=== PATIENT | female | born 2000 ===

== ENCOUNTER 2025-02-18 13:59 | Outpatient (AMB) | payer BC, SELFPAY ==
[2025-02-18 14:22] VITALS: BP 120/73; PULSE 74; RESP 18; TEMP 36.4; O2SAT 99; BMI 22.3
--- NOTE | 2025-02-18 14:22 | OBCLNT_ITS ---
Vital Signs 02/18/25 14:22 Height 1.55 m Height Method Stated Weight 53.637 kg Weight Measurement Method Standing Scale BMI 22.3 BP 120/73 Blood Pressure Source Automatic Cuff Blood Pressure Location Right Upper Arm Position Sitting Respiration 18 Pulse 74 Pulse Source Monitor Temp 97.6 F Temp Source Temporal Artery Scan Pulse Oximetry (%) 99 Oxygen Delivery Method Room Air Allergies/Home Meds Allergies & Medications Allergies NKA* Allergy (Uncoded 02/18/25 14:23) Medication Reconciliation No Known Home Medications 02/18/25 [History Confirmed 02/18/25] Intake Visit Data Collection New Patient or Established: New Patient (never been to [facility]) Reason for Visit:: OBI TRANSFER Seen by Clinical Staff ONLY (RN/MA): No Compliance Administrator Required: No Do You Feel Safe at Home: Yes Authorities Contacted: N/A PCP or OBGYN visit in last 3 months: No Date of Last PCP or OBGYN visit: 10/14/24 Hx Now: Yes Are you currently on any form of Control: No Pain Present Currently: No Pain Scale Used: Coe-Richardson/Numerical Pain scale:: 0 Smoking Status Smoking Status: Never smoker Immunizations Flu Vaccine in the Last 12 Months: No Flu Vaccine Exclusion Criteria: No Exclusion Criteria Questionnaires Covid-19 Vaccine Questionnaire Has patient been vacinated for Covid-19 Have you been vacinated for Covid-19: No PHQ-9 PHQ-2 Over the last 2 weeks, how often have you been bothered by any of the following problems? 1. Little interest or pleasure in doing things: not at all 2. Feeling down, depressed, or hopeless: not at all Total score: 0 PHQ-9 3. Trouble falling or staying asleep, or sleeping too much: Not at all 4. Feeling tired or having little energy: Not at all 5. Poor appetite or overeating: Not at all 6. Feeling bad about yourself - or that you are a failure or have let yourself or your family down: Not at all 7. Trouble concentrating on things, such as reading the newspaper or watching television: Not at all 8. Moving or speaking so slowly that other people could have noticed? - Or the opposite - being so fidgety or restless that you have been moving around a lot more than usual: not at all 9. Thoughts that you would be better off or of hurting yourself in some way: Not at all Total score: 0 If you checked off any problems, how difficult have these problems made it for you to do your work, take care of things at home, or get along with other people?: not difficult at all Source: Developed by Drs. Chito Sanderson, Mounika Loo, Marvin Gonzalez and colleagues, with an educational dheeraj from [employer]. Depression screen completed yes Social History Living Situation History Marital Status: Life Partner Lives With: Family Housing: House Tobacco History Smoking Status: Never smoker Second Hand Smoke Exposure: No Alcohol History Alcohol Intake: Never Domestic Abuse History Do You Feel Safe at Home: Yes History of Present Illness HPI Narrative 24-year-old 1 para 0 for OBI. Patient was a transfer of care from [facility] in [facility]. Her last period October 17, 2024. Patient reports her periods are every month in the last 5 days. This gives EDC of July 24, 2025. Patient also had a 6-week ultrasound June 29, 2024. At [facility] she was 6 weeks then and that confirmed dates. Denies social habits. Denies surgery. Patient has history of asthma with exercise. She uses inhaler if she has breathing difficulties for rescue. Denies leaking or bleeding. And no cramps. Patient is O+, antibody screen negative, RPR nonreactive, rubella nonimmune, hepatitis B negative, hep C negative, HIV negative, GC and Chlamydia were negative. And patient declined NIPT and carrier screens. She also does not want to do AFP OB Initial Visit OB Flowsheet OB Flowsheet Initial Weight: Not Recorded Date -?-?-?-?-?-?-?-?-?-?-?-?- EGA Weight BP Alb Glu CTX Pres Fundal ht FHR Mov Dilation Station Effacement Hx Notes Visit Note 02/18/25 -?-?-?-?-?-?-?-?-?-?-?-?- 17w 5d 53.637 kg 120/73 absent unknown 18 145 active 24-year-old 1 para 0 for OB today. Patient is a transfer from [facility] with records. Her last period was October 17, 2024. And this gives EDC of July 24, 2025. Patient had a 6-week ultrasound November to confirm it I reviewed all her labs is normal. She denies cramping, bleeding, leaking and reports light movement Declined NIPT and carrier screen. Declined AFP. Patient agrees to scheduling anatomy scan at [facility]. Discussed labor precautions. Discussed diet and weight gain. Increase fluids. Return in 4 weeks OB check Menstrual History Menstrual reliability: definite Flow: normal Menstrual regularity: regular Monthly: Yes Age at menarche: 12 On control pills at conception: No OB History : 1 Para: 0 # of Living Children: 1 Infection History & Risk Evaluation History of STDs: gonorrhea (2019) Genetic Screening & History Genetic Screening/Teratology Counseling - Includes patient, baby's father, or anyone in either family with: 1. Patient's age 35 years or older as of estimated date of delivery: No 2. Thalassemia (Tongan, Honduran, Mediterranean, or Background); MCV less than 80: No 3. Neural Tube Defect (Meningomyelocele, Spina Bifida, or Anencephaly): No 4. Congenital Heart Defect: No 5. Down Syndrome: No 6. Zi-Sachs (Ashkenazi Sabianist, Cajun, B[place]an [place]): No 7. Jyoti Disease (Ashkenazi Sabianist): No 8. Familial Dysautonomia (Ashkenazi Sabianist): No 9. Sickle Cell Disease or Trait (): No 10. Hemophilia or other blood disorders: No 11. Muscular Dystrophy: No 12. Cystic Fibrosis: No 13. Daryl's Chorea: No 14. Mental Retardation/Autism: No 15. Other inherited genetic or chromosomal disorder: No 16. Maternal Metabolic Disorder (EG,TYPE 1 Diabetes, PKU): No 17. Patient or baby's father had a child with defects not listed above: No 18. Recurrent loss or a stillbirth: No 19. Medications (including supplements, vitamins, herbs or otc drugs)/ illicit/recreational drugs/alcohol since last menstrual period: No 20. Any other: No Infection History Other (see comments) Source: [employer] Review of Systems Review of Systems Systems Reviewed: All systems reviewed, normal except as documented Exam General Limitations: no limitations General Appearance: alert, in no apparent distress, comfortable, cooperative, healthy appearing, well developed and well groomed Head Head exam: atraumatic, normocephalic and normal inspection ENT ENT exam: Present normal exam, normal oropharynx and mucous membranes moist Neck Neck exam: Present normal inspection, full ROM and trachea midline Chest Chest inspection: Present normal inspection and symmetric chest wall rise Resp Respiratory exam: Present normal lung sounds bilaterally Psych Psychiatric exam: Present normal affect and normal mood Office Procedures OBC Clinic LOC & Office Proc's Nursing/Assessment Patient Status: Established Patient OB Clinic Nursing Assessment: Medication Reconciliation, Update PMH in EMR and Vital Signs OB Clinic Coordination of Care: Complex Care and Chronic Disease 1-5, Education Complex Pt/Fam, Consent,records obtained, informed consent, Lab and Imaging orders, Results/Orders obtained and Staff clarify orders Special Needs: Heart tones Established Patient Charge Established Patient Point Assignment: 140 Established Patient Point Charge: EP Level 4 (120-155) Assessment & Plan Diagnosis / Problem List (1) Encounter for supervision of high risk in second trimester, antepartum: Status: Acute Plan Reviewed labs today. Schedule ultrasound with [facility] for MFM appointment. We talked about carrier screens and patient will let me know if she wants to get those. Discussed labor precautions. Discussed diet and weight and return in 4 weeks OB check Additional Plan Follow Up: 4 Weeks (obc)
== END 2025-02-18 14:59 | disposition home or self-care (01) ==
LOC: HODSOBC 13:59
PROVIDERS: PCP Nurse Practitioner Family; Referring Provider Nurse Practitioner Family; Supervising Provider Advanced Practice Midwife; Visit Provider Advanced Practice Midwife
DX: O09.92 Supervision of high risk pregnancy, unspecified, second trimester (principal); Z3A.17 17 weeks gestation of pregnancy; Z53.29 Procedure and treatment not carried out because of patient's decision for other reasons
CPT/HCPCS: 99214; G0463

== ENCOUNTER 2025-03-24 14:45 | Outpatient (AMB) | payer BC, SELFPAY ==
[2025-03-24 14:54] VITALS: BP 105/53; PULSE 96; RESP 18; TEMP 36.4; O2SAT 99; BMI 23.8
--- NOTE | 2025-03-24 14:54 | AMB.OBPNC ---
Vital Signs 03/24/25 14:54 Height 1.55 m Height Method Stated Weight 57.379 kg Weight Measurement Method Standing Scale BMI 23.8 BP 105/53 L Blood Pressure Source Automatic Cuff Blood Pressure Location Left Upper Arm Position Sitting Respiration 18 Pulse 96 Pulse Source Monitor Temp 97.5 F Temp Source Temporal Artery Scan Pulse Oximetry (%) 99 Oxygen Delivery Method Room Air Allergies/Home Meds Allergies & Medications Allergies NKA* Allergy (Uncoded 03/24/25 14:55) Medication Reconciliation No Known Home Medications 02/18/25 [History Confirmed 03/24/25] Immunizations Immunizations Flu Vaccine in the Last 12 Months: No Flu Vaccine Exclusion Criteria: Refused by Patient Care OB Visit Log OB Flowsheet Initial Weight: Not Recorded Date <del>?</del> EGA Weight BP Alb Glu CTX Pres Fundal ht FHR Mov Dilation Station Effacement Hx Notes Visit Note 02/18/25 <del>?</del> 17w 5d 53.637 kg 120/73 absent unknown 18 145 active 24-year-old 1 para 0 for OB today. Patient is a transfer from [facility] with records. Her last period was October 17, 2024. And this gives EDC of July 24, 2025. Patient had a 6-week ultrasound November to confirm it I reviewed all her labs is normal. She denies cramping, bleeding, leaking and reports light movement Declined NIPT and carrier screen. Declined AFP. Patient agrees to scheduling anatomy scan at at [facility]. Discussed labor precautions. Discussed diet and weight gain. Increase fluids. Return in 4 weeks OB check 03/24/25 <del>?</del> 22w 4d 57.379 kg 105/53 unknown 22 145 active Fetus active. Denies leaking, bleeding, contractions Maternal- medicine appointment for sono in April. Discussed labor precautions. Increase fluids and continue prenatals and return in 4 weeks OB check DARIUSZ Calculator Estimated Delivery Date Method Current WG Current Estimate 07/24/25 LMP (Certain) 22w 4d Other Estimates 07/25/25 Ultrasound #1 22w 3d Notes Visit Date: 02/18/25 Last Updated by: Paris Helms CNM 24 yo , LMP: 10/17/24. EDC: 07/24/25, O+,abs-, RPR::NR, rub NI, HBSAG-,HIV-,HC-, GC/CT-. Office Procedures OBC Clinic LOC & Office Proc's Nursing/Assessment Patient Status: Established Patient OB Clinic Nursing Assessment: Medication Reconciliation, Update PMH in EMR and Vital Signs OB Clinic Coordination of Care: Complex Care and Chronic Disease 1-5, Education Complex Pt/Fam, Consent,records obtained, informed consent, Lab and Imaging orders, Results/Orders obtained and Staff clarify orders Special Needs: Heart tones Established Patient Charge Established Patient Point Assignment: 140 Established Patient Point Charge: EP Level 4 (120-155) Assessment & Plan Diagnosis / Problem List (1) Encounter for supervision of high risk in second trimester, antepartum: Status: Acute Plan Maternal- medicine appointment in April. Discussed labor precautions. Continue prenatals. Return in 4 weeks OB Additional Plan Follow Up: 4 Weeks (obc)
== END 2025-03-24 15:16 | disposition home or self-care (01) ==
LOC: HODSOBC 14:45
PROVIDERS: Supervising Provider Advanced Practice Midwife; Visit Provider Advanced Practice Midwife
DX: O09.92 Supervision of high risk pregnancy, unspecified, second trimester (principal); Z3A.22 22 weeks gestation of pregnancy; Z28.21 Immunization not carried out because of patient refusal
CPT/HCPCS: 99214; G0463